=== PATIENT | female | born 1970 | race Caucasian/White ===

== ENCOUNTER 2018-05-09 15:00 | Emergency (ER) | payer MEDICAID ==
[~2018-05-09] VITALS: Ht 167.6 cm; Wt 61.7 kg
[~2018-05-09 15:00] MED LIST: BUTALB-APAP-CA1 EACH PO; CLONAZEPAM 1 MG1 M1 PO; DOXYCYCLINE 10100 MG PO; OXYCODONE HCL E15 MG PO; PERCOCET 7.5-31 EACH PO; TRAZODONE HCL100 MG PO
[2018-05-09] MEDS ORDERED: PROMETHAZINE V120 ML PO (15:34)
[2018-05-09] MEDS ORDERED: TESSALON PERLE100 MG PO (15:34)
[2018-05-09] MEDS ORDERED: MEDROLDOSEPACK PO (15:34)
[2018-05-09] MEDS ORDERED: PROAIR HFA8.5 GM INH (15:34)
[2018-05-09] MEDS ORDERED: ZPAK PO (15:34)
[2018-05-09 15:39] LABS: INFLUENZA A ANTIGEN None Detected (None Detect); INFLUENZA B ANTIGEN None Detected (None Detect)
[2018-05-09 16:07] VITALS: BP 102/52
== END 2018-05-09 16:08 | disposition home or self-care (01) ==
LOC: M.ERS 15:00
PROVIDERS: Physician Assistant
DX: J20.9 Acute bronchitis, unspecified (principal); G43.909 Migraine, unspecified, not intractable, without status migrainosus; I10 Essential (primary) hypertension; M79.7 Fibromyalgia; M06.9 Rheumatoid arthritis, unspecified; F17.210 Nicotine dependence, cigarettes, uncomplicated; Z88.6 Allergy status to analgesic agent; Z88.8 Allergy status to other drugs, medicaments and biological substances; Z90.710 Acquired absence of both cervix and uterus

== ENCOUNTER → 2018-05-23 | Outpatient (CLI) | payer MEDICAID ==
[~2018-05-23] MED LIST changes: +MEDROLDOSEPACK PO; +PROAIR HFA8.5 GM INH; +PROMETHAZINE V120 ML PO; +TESSALON PERLE100 MG PO; +ZPAK PO
== END ==
LOC: M.CT 05-20 16:00
DX: M47.897 Other spondylosis, lumbosacral region (principal); M48.07 Spinal stenosis, lumbosacral region

== ENCOUNTER 2019-11-19 14:23 | Emergency (ER) | payer MEDICAID ==
[~2019-11-19] VITALS: Ht 167.6 cm; Wt 72.6 kg
[2019-11-19] MEDS ORDERED: ROBAXIN 750 MG750 MG PO (14:33)
[2019-11-19] MEDS ORDERED: AMOXICILLIN 50500 MG PO (16:06)
[2019-11-19 16:44] VITALS: BP 141/78
== END 2019-11-19 16:46 | disposition home or self-care (01) ==
LOC: M.ERS 14:23
DX: S16.1XXA Strain of muscle, fascia and tendon at neck level, initial encounter (principal); M54.5 Low back pain; M54.6 Pain in thoracic spine; H70.12 Chronic mastoiditis, left ear; I10 Essential (primary) hypertension; M79.7 Fibromyalgia; M06.9 Rheumatoid arthritis, unspecified; G43.909 Migraine, unspecified, not intractable, without status migrainosus; Z88.6 Allergy status to analgesic agent; Z88.8 Allergy status to other drugs, medicaments and biological substances; Z90.710 Acquired absence of both cervix and uterus; W01.0XXA Fall on same level from slipping, tripping and stumbling without subsequent striking against object, initial encounter; Y93.89 Activity, other specified; Y92.090 Kitchen in other non-institutional residence as the place of occurrence of the external cause; Y99.8 Other external cause status

== ENCOUNTER → 2019-11-24 | Outpatient (CLI) | payer MEDICAID ==
[~2019-11-24] MED LIST changes: +AMOXICILLIN 50500 MG PO; +ROBAXIN 750 MG750 MG PO
== END ==
LOC: M.LAB 11:22
PROVIDERS: ATTEND Internal Medicine Gastroenterology
DX: Z01.812 Encounter for preprocedural laboratory examination (principal); R13.10 Dysphagia, unspecified; Z11.59 Encounter for screening for other viral diseases

== ENCOUNTER 2021-03-24 16:03 | Emergency (ER) | payer MEDICAID ==
[~2021-03-24] VITALS: Ht 165.1 cm; Wt 64.0 kg
[2021-03-24] MEDS ORDERED: LISINOPRIL10 MG PO (16:17)
[2021-03-24] MEDS ORDERED: LEXAPRO 10 MG T10 M2 PO (16:17)
[2021-03-24 17:13] LABS: URINE BILIRUBIN NEGATIVE (Negative); URINE BLOOD 2+ (Negative); URINE CLARITY CLEAR; URINE COLOR YELLOW; URINE GLUCOSE-RANDOM NEGATIVE (Negative); URINE KETONES NEGATIVE (Negative); URINE LEUKOCYTES NEGATIVE (Negative); URINE NITRITE NEGATIVE (Negative); URINE PROTEIN NEGATIVE (Negative); URINE SPECIFIC GRAVITY >= 1.030 (1.005-1.030); URINE UROBILINOGEN 0.2 E.U./dl (0.2-1.0)
[2021-03-24 17:27] LABS: BACTERIA None Seen /HPF (None Seen); HYALINE CASTS 0-3 Few /LPF (None Seen); MUCUS 0-3 Light strn/LPF (None Seen); SQUAMOUS 4-10 Moderate /LPF (0-3); URINE RBC 3-10 Few /HPF (0-2); URINE WBC 0-5 Rare /HPF (0-5); WBC CASTS 0-3 /LPF
[2021-03-24 17:28] LABS: CRYSTALS None Seen /LPF (None Seen)
[2021-03-24 18:07] LABS: ABSOLUTE BASOPHILS 0.1 thou/uL (0.0-0.2); ABSOLUTE EOSINOPHILS 0.3 thou/uL (0.0-0.7); ABSOLUTE LYMPHOCYTES 2.5 thou/uL (0.8-5.3); ABSOLUTE MONOCYTES 0.6 thou/uL (0.0-1.2); ABSOLUTE NEUTROPHILS 5.7 thou/uL (1.6-8.1); BASOPHILS 0.9 %; HEMATOCRIT 40.1 % (37.0-47.0); HEMOGLOBIN 13.4 gm/dL (12.0-15.0); LYMPHOCYTES 27.5 %; MCH 29.9 pg (26.0-34.0); MCHC 33.4 g/dL (28.0-37.0); MCV 89.5 fL (80.0-100.0); MONOCYTES 6.6 %; MPV 7.3 fl. (7.2-11.1); NUCLEATED RBCS 0 /100WBC; PLATELET COUNT* 265 thou/uL (150-400); RBC 4.48 mil/uL (4.20-5.00); WBC 9.3 thou/uL (4.0-11.0)
[2021-03-24 18:14] LABS: CALCIUM 8.9 mg/dL (8.5-10.1); CREATININE 0.9 mg/dL (0.6-1.3); POTASSIUM 3.5 mmol/L (3.5-5.1)
[2021-03-24 18:18] LABS: ALBUMIN 3.1 g/dL (3.4-5.0); TOTAL BILIRUBIN 0.2 mg/dL (<0.1-1.0); TOTAL PROTEIN 6.1 g/dL (6.4-8.2)
[2021-03-24] MEDS ORDERED: NORCO5 PO (19:29)
[2021-03-24] MEDS ORDERED: HYDROCODON-ACE1 EAC7 PO (19:36)
[2021-03-24 19:38] VITALS: BP 125/70
== END 2021-03-24 19:39 | disposition home or self-care (01) ==
LOC: M.ERS 16:03
PROVIDERS: Physician Assistant
DX: K92.2 Gastrointestinal hemorrhage, unspecified (principal); G43.909 Migraine, unspecified, not intractable, without status migrainosus; I10 Essential (primary) hypertension; M79.7 Fibromyalgia; M06.9 Rheumatoid arthritis, unspecified; Z88.6 Allergy status to analgesic agent; Z88.8 Allergy status to other drugs, medicaments and biological substances; Z79.899 Other long term (current) drug therapy; Z98.890 Other specified postprocedural states; Z90.710 Acquired absence of both cervix and uterus